=== PATIENT | female | born 1990 | race Hispanic/Latino ===

== ENCOUNTER 2023-07-30 11:07 | Outpatient (CLI) | payer OTHER, SELFPAY ==
--- NOTE | 2023-07-30 11:59 | ECG_ITS ---
Measurements Intervals [place] Rate: 63 P: 52 IL: 157 QRS: 31 QRSD: 100 T: -8 QT: 383 QTc: 394 Interpretive Statements SINUS RHYTHM BORDERLINE ST-T WAVE ABNORMALITY- INFERIOR LEADS BASELINE ARTIFACT- I, III, AVR, AVL BORDERLINE ECG NO PREVIOUS ECG AVAILABLE FOR COMPARISON Electronically Signed On 07-30-2023 12:14:23 CDT by Talat Friend D.O.
== END 2023-07-30 11:08 | disposition home or self-care (01) ==
PROVIDERS: Visit Provider Obstetrics & Gynecology Gynecologic Oncology
DX: I10 Essential (primary) hypertension (principal)
CPT/HCPCS: 93005

== ENCOUNTER 2023-08-07 00:25 | Day surgery (SDC) | payer OTHER, SELFPAY ==
--- NOTE | 2023-07-30 11:40 | PC.NURSE ---
Report to the Outpatient Waiting Room, entrance under the green pavilion located off [facility], at time __1100 on date _08/07/23 . Planned Procedure Time: __1:00 PM . Time changes happen often and if your time is changed the preop area will call you the afternoon before. - You and your visitor will be asked to self-screen and do not enter if you have any COVID symptoms. - A mask is optional within the hospital at this time. Patients may have clear liquids (water, carbonated beverages, clear teas, apple juice) until 3 hours prior to surgery with a maximum of 20 ounces. - No food from midnight until time of surgery - Infants may have breast milk until 4 hours before surgery, infant formula 6 hours prior to surgery. - Children will be allowed to drink immediately following surgery. If applicable, please bring a bottle or sippy cup to assist with drinking. Juice, water, soda, and popsicles are readily available. For infants on formula, please bring formula the day of surgery. Pacifiers are allowed. Take the following medications with a SIP of water the morning of surgery: ____NONE DO NOT STOP ANY OF YOUR OTHER PRESCRIPTION MEDICATIONS PRIOR TO SURGERY ?EXCEPT THE FOLLOWING Medications to discontinue per physician NONE Date to take last dose Please no make-up, nail scottish, hairspray, perfume, deodorant, or body powder the day of surgery. No jewelry (including any body piercings) or valuables the day of surgery, leave them at home. Please take a shower or bath the night before, or the morning of, surgery with an antibacterial soap. Wear comfortable, loose fitting clothing. Children are encouraged to wear pajamas. - Jewelry must be removed prior to entering the operating room. Rings and piercings that are not removed may be cut off. - The hospital will not accept responsibility for valuables. - Please leave all valuables, including medications, at home the day of surgery. If you are going home after surgery, a licensed jinrikisha driver must drive you home. - NO public transportation without another adult if you receive anesthesia. - We recommend that an adult stay with you for 24 hours following discharge. - We also recommend that you do not drive, make important decision, drink alcoholic beverages, or take any drugs that were not prescribed by your health care provider for at least 24 hours after your discharge time. For Pediatric surgeries, we recommend two adults accompany the child home. Follow any additional instructions given to you from your surgeon. If you or anyone in your household have experienced Covid symptoms in the past week, please notify your surgeon or the nurse liaison at the phone number below for possible testing. VERBAL AND WRITTEN instructions given to _DAUGHTER STELLA([employer]) AND PT and asked if any additional questions and then verbalized understanding. Patient advised to call surgeon office or pre surgery nurse liaison [phone] if any additional questions.
[2023-07-30 12:09] VITALS: BP 125/94; PULSE 69; RESP 18; TEMP 36.7; O2SAT 100; BMI 39.5
[2023-08-07] VITALS (11 sets, daily range): BP systolic 114–138; BP diastolic 68–94; PULSE 68–94; RESP 14–20; TEMP 36.7–36.8; O2SAT 95–100
[2023-08-07] MEDS: SCOPOLAMINE 1.5 MG PATCH TRANSDERM (11:36)
[2023-08-07] MEDS: LACTATED RINGERS 1,000 ML 30 ML IV CONT ×2 (11:36→15:49)
[2023-08-07] MEDS: ACETAMINOPHEN 500 MG TABLET 1000 MG PO (11:37)
[2023-08-07] MEDS: GABAPENTIN 300 MG CAPSULE PO (11:37)
--- NOTE | 2023-08-07 11:44 | WPDHPUPDATE1 ---
History and Physical Update Update Date/Time: 08/07/23 11:44 History and Physical has been reviewed, including an updated exam of the patient. There are NO changes in the patient's condition. Risks, benefits, and alternatives have been discussed and questions answered. Patient agrees to proceed with procedure.
--- NOTE | 2023-08-07 11:44 | PM.IMHP ---
H&P: HPI History of Present Illness Date/Time: 08/07/23 11:44 Chief Complaint: I'm here to have my tubes removed Narrative: Layne here desiring permanent sterilization via diagnostic laparoscopy, bilateral salpingectomy Review of Systems Review of Systems: All systems reviewed & are unremarkable except as noted in HPI and below [facility] Social History Social History Smoking status: Never smoker Living arrangements: with family Spiritual care concerns: No Meds Home Medications and Allergies Home Medications Medication Instructions Recorded Confirmed Type lisinopril 30 mg tablet 10 mg PO DAILY 07/30/23 08/07/23 History Allergies Allergy/AdvReac Type Severity Reaction Status Date / Time No Known Allergies Allergy Verified 08/07/23 11:44 Exam Const: General: comfortable and no acute distress Eyes: General: appearance normal, both eyes and all related structures Resp: Effort & Inspection: normal respiratory effort Auscultation: clear to auscultation bilaterally Cardio: Rate: regular rate Rhythm: regular rhythm GI: GI Palp: Yes Soft to palpation Auscultation: normal bowel sounds Skin: General skin exam: normal color and no rashes or lesions noted Psych: Mental Status: mental status grossly normal Assessment and Plan Assessment and plan (1) Sterilization: Code(s): Z30.2 - Encounter for sterilization Status: Acute Plan Diagnostic laparoscopy, bilateral salpingectomy.
--- NOTE | 2023-08-07 12:33 | P.PNAN_ITS ---
Anes - Initial Pre Proc Eval Procedure: Operation Date: 08/07/23 13:00 Proposed Procedures p Diagnostic Laparoscopy, Bilateral Salpingectomy, Paragard Intrauterine Device Removal - Li Elizabeth DO Date/Time: 08/07/23 12:33 Surgeon: Li Elizabeth DO Pre Op Diagnosis: Desire Surgical Sterility Patient Data Age: 32 Gender: F Height: 1.52 m Weight: 91.6 kg Last Vital Signs Temp 36.7 C 08/07/23 11:48 Pulse 76 08/07/23 11:48 Resp 14 08/07/23 11:48 BP 128/94 H 08/07/23 11:48 Pulse Ox 100 08/07/23 11:48 O2 Del Method Room Air 07/30/23 12:09 Allergies Allergy/AdvReac Type Severity Reaction Status Date / Time No Known Allergies Allergy Verified 08/07/23 11:44 Home Medications Medication Instructions Recorded Confirmed Type lisinopril 30 mg tablet 10 mg PO DAILY 07/30/23 08/07/23 History Patient hx anesthesia problems: none Family hx anesthesia problems: none Results Review: All pre-operative results and documents have been reviewed as part of the pre- operative evaluation. [facility] Past Medical History Medical History (Updated 08/07/23 @ 12:33 by Curtis Xiong MD) Morbid obesity Social History Social History Smoking status: Never smoker Living arrangements: with family Spiritual care concerns: No Anes - Eval Final PreProcedure Day of Procedure 08/07/23 12:33 Patient weight: morbidly obese Heart: regular rate and rhythm Lungs: clear to auscultation Airway: Mallampati scale class II Neurological: alert and oriented Last oral intake: >/= 8 hours ASA classification: III Emergent: no Anesthetic plan: proceed Anesthesia type and monitoring: general ETT and standard monitoring Results Review: All pre-operative results and documents have been reviewed as part of the pre- operative evaluation. Informed Consent: The patient's anesthetic plan and its attendant risks and benefits were discussed with the patient/family/POA. Questions were solicited and answers provided to the satisfaction of the patient/family/POA.
[2023-08-07] MEDS: BUPIVACAINE/EPINEPHRINE 0.5% 50 ML VIAL 15 ML INFILTRATE (14:14)
--- NOTE | 2023-08-07 14:27 | P.OP_ITS ---
Procedure Note - Detailed Date of Procedure 08/07/23 Pre-op Diagnosis Desire Surgical Sterility IUD Rremoval Post-op Diagnosis Same Procedure Performed Diagnostic laparoscopy, bilateral salpingectomy. Lysis of adhesions. Removal of IUD. Surgeon Li Elizabeth, DO Anesthesia General Indications Desires permanent sterility and removal of IUD. Findings Normal appearing vulva and vaginal canal. Small cervix. Small retroverted uterus. IUD strings at external os and Paragard was removed intact. Internally, there were omental adhesions to her previous hernia repair. There was moderate scar tissue at the bladder flap. The uterus, tubes and ovaries were otherwise unremarkable. Description of Procedure The patient was taken to the operating room where she was placed under general anesthesia. She was prepped and draped in the normal sterile fashion in the dorsal lithotomy position. No preoperative antibiotics were indicated. After a time-out was performed, a speculum was placed in the vagina and the cervix was visualized. The posterior lip was grasped with a long Allis clamp and the cervix was dilated to accommodate uterine manipulator. Once the manipulator was placed, the Allis and speculum were removed. Gloves were changed and attention was then turned to the abdomen. Because of her multiple surgeries I elected for a high supraumbilical incision. About 4-5 cm above the umbilicus and made a small incision after injecting local. S retractors were used to dissect down to the fascia. Hemostat was used to carefully open the fascia. The trocar was then inserted and survey revealed entry into the abdominal cavity without any bowel or vascular injury. CO2 insufflation was started in the abdomen was brought to a filling pressure of 15 mmHg. The patient was then placed in steep Trendelenburg position there were copious omental adhesions underneath the umbilicus to her previous hernia repair. They did not contain any small bowel. Additional trocar sites in the right and left lower quadrants were identified, injected and incised in areas free of adhesions. Once these were inserted the LigaSure was used to take down the adhesions with blunt and sharp dissection. Pelvis was then surveyed and revealed the above-mentioned findings. The right tube was elevated and was cauterized and transected off using the LigaSure. It was then passed off through the occupational therapist's assistant port. The procedure was repeated in identical fashion on the opposite side. Copious irrigation was used in the pelvis and all blood and fluid was suctioned out. Survey of the pedicles revealed good hemostasis. The instruments and trocars were removed and the CO2 was allowed to escape from the abdomen. The abdominal incisions were closed with subcuticular 4-0 Monocryl and covered with skin glue. The uterine manipulator was removed. The IUD strings were identified and were grasped. The ParaGard IUD was removed intact. The speculum was removed. the patient was taken to the recovery room in stable condition. All instrument and sponge counts were correct at the conclusion of the procedure. Estimated Blood Loss 5 IV Fluids 800 Drains No Packing No Pathology Yes Complications No immediate complications Condition Stable Disposition PACU
[2023-08-07] MEDS: KETOROLAC 30 MG/ML VIAL (*BKC) IV PUSH (14:41)
[2023-08-07] MEDS: fentaNYL CITRATE INJ (*CRX) 100 MCG/2 ML VIAL 25 MCG IV PUSH ×4 (14:51→15:08)
[2023-08-07] MEDS: ONDANSETRON INJ 4 MG/2 ML VIAL IV PUSH (15:49)
[2023-08-07] MEDS: oxyCODONE HCL (*CRX) 5 MG TAB IR PO (16:29)
== END 2023-08-07 16:44 | disposition home or self-care (01) ==
PROVIDERS: Visit Provider Obstetrics & Gynecology Gynecologic Oncology
PROC: (CPT 49320; principal; 2023-08-07 13:00)
DX: Z30.2 Encounter for sterilization (principal); Z30.432 Encounter for removal of intrauterine contraceptive device; E66.01 Morbid (severe) obesity due to excess calories; Z68.39 Body mass index [BMI] 39.0-39.9, adult
CPT/HCPCS: 58661; 58301; 88302; A9270; J1100; J1885; J2250; J2405; J2704; J3010; J7030; J7120